=== PATIENT | female | born 1940 | race Caucasian/White ===

== ENCOUNTER 2016-05-10 08:57 | Emergency (ER) | payer MEDICARE, OTHER ==
[2015-12-31 12:29] VITALS: BMI 22.6
[~2016-05-10 08:57] MED LIST: ARICEPT23 MG PO; BENTYL10 MG PO; CALTRATE 600 M600 M1 PO; CARAFATE1 G/10 ML PO; CELEXA40 MG PO; CYCLOBENZAPRINE10 MG PO; DESERYL100 MG PO; DICLOFENAC SODI50 MG PO; FLAGYL500 MG PO; FLORINEF 0.1 M0.1 MG PO; IMITREX100 MG; KADIAN30 MG PO; KLOR-CON 1010 MEQ PO; LEVAQUIN750 MG PO; LINZESS145 MCG PO; MOBIC7.5 MG PO; MORPHINE IMMEDI15 MG PO; MORPHINE SULFAT30 M4 PO; MULTI-DAY VITAM1 TAB PO; NEURONTIN 300300 MG PO; NEXIUM40 MG PO; PRAVASTATIN SOD10 MG PO; TOPAMAX100 MG PO; VOLTAREN75 MG PO; ZANAFLEX4 MG PO
[2016-05-10 09:53] LABS: BASOPHILS 0.2 % (0.0-2.0); EOSINOPHILS 0.4 % (0-7); HEMATOCRIT 34.1 % (36.0-48.0); HEMOGLOBIN 10.2 g/dL (12-16); IMMATURE GRANULOCYTES 0.1 % (0-5); LYMPHOCYTES 8.8 % (15-50); MCH 27.4 pg (26.0-34.0); MCHC 29.9 g/dL (31.0-37.0); MCV 91.7 fL (80.0-100.0); MONOCYTES 9.5 % (2-11); RBC 3.72 10x6/uL (4.00-5.40); RDW 14.6 % (11.5-14.5); WBC 9.1 10x3/uL (4.8-10.8)
[2016-05-10 09:55] LABS: PLATELET COUNT 200 10x3/uL (130-400)
[2016-05-10 10:15] LABS: ALBUMIN 2.8 g/dL (3.4-5.0); ANION GAP 10.4 mmol/L (8-16); BILIRUBIN - TOTAL 0.28 mg/dL (0.2-1.3); CALCIUM 8.4 mg/dL (8.5-10.1); CARBON DIOXIDE 26.6 mmol/L (21.0-32.0); CREATININE - SERUM 0.9 mg/dL (0.6-1.3); PROTEIN - SERUM 5.6 g/dL (6.4-8.2)
[2016-05-10 10:34] LABS: APPEARANCE CLEAR (CLEAR); BILIRUBIN NEGATIVE (NEGATIVE); COLOR DK YELLOW (YELLOW); GLUCOSE NEGATIVE (NEGATIVE); KETONE NEGATIVE (NEGATIVE); LEUKOCYTE ESTERASE TRACE (NEGATIVE); NITRITE NEGATIVE (NEGATIVE); PROTEIN TRACE mg/dL (NEGATIVE); UROBILINOGEN NORMAL (NORMAL)
[2016-05-10 10:35] LABS: AMORPHOUS SEDIMENT <1+ /lpf (NONE SEEN); BACTERIA MODERATE /hpf (NONE SEEN); EPITHELIAL CELLS 0-5 /hpf (0-5); GRANULAR CAST OCC /lpf (NONE SEEN); RED CELLS - URINE 0-5 /hpf (0-5); WHITE CELLS - URINE 0-5 /hpf (0-5)
== END 2016-05-10 11:57 | disposition home or self-care (01) ==
LOC: D.ER 08:57
PROVIDERS: Emergency Medicine
DX: S50.811A Abrasion of right forearm, initial encounter (principal); S50.812A Abrasion of left forearm, initial encounter; W19.XXXA Unspecified fall, initial encounter; Y93.89 Activity, other specified; Y92.019 Unspecified place in single-family (private) house as the place of occurrence of the external cause; S00.83XA Contusion of other part of head, initial encounter; E86.0 Dehydration; D64.9 Anemia, unspecified; F03.90 Unspecified dementia, unspecified severity, without behavioral disturbance, psychotic disturbance, mood disturbance, and anxiety; F32.9 Major depressive disorder, single episode, unspecified; C34.90 Malignant neoplasm of unspecified part of unspecified bronchus or lung

== ENCOUNTER 2016-06-19 18:40 | Emergency (ER) | payer MEDICARE, OTHER ==
[2015-12-31 12:29] VITALS: BMI 22.6
[2016-06-19 19:37] LABS: BASOPHILS 0.1 % (0.0-2.0); EOSINOPHILS 0.1 % (0-7); HEMATOCRIT 36.1 % (36.0-48.0); HEMOGLOBIN 10.9 g/dL (12-16); IMMATURE GRANULOCYTES 0.1 % (0-5); LYMPHOCYTES 9.6 % (15-50); MCH 28.1 pg (26.0-34.0); MCHC 30.2 g/dL (31.0-37.0); MEAN PLATELET VOLUME 11.5 fL (7.4-10.4); MONOCYTES 5.6 % (2-11); NEUTROPHILS 84.5 % (40-80); PLATELET COUNT 203 10x3/uL (130-400); RBC 3.88 10x6/uL (4.00-5.40); RDW 14.4 % (11.5-14.5); WBC 7.1 10x3/uL (4.8-10.8)
[2016-06-19 20:02] LABS: ALBUMIN 3.8 g/dL (3.4-5.0); ANION GAP 13.8 mmol/L (8-16); BILIRUBIN - TOTAL 0.17 mg/dL (0.2-1.3); CALCIUM 9.1 mg/dL (8.5-10.1); CARBON DIOXIDE 24.7 mmol/L (21.0-32.0); POTASSIUM - SERUM 3.5 mmol/L (3.5-5.1); PROTEIN - SERUM 6.7 g/dL (6.4-8.2)
[2016-06-19 20:15] LABS: APPEARANCE CLEAR (CLEAR); BILIRUBIN NEGATIVE (NEGATIVE); COLOR YELLOW (YELLOW); GLUCOSE NEGATIVE (NEGATIVE); KETONE NEGATIVE (NEGATIVE); LEUKOCYTE ESTERASE 1+ (NEGATIVE); NITRITE NEGATIVE (NEGATIVE); PROTEIN NEGATIVE (NEGATIVE); SPECIFIC GRAVITY 1.015 (1.005-1.020); UROBILINOGEN NORMAL (NORMAL)
[2016-06-19 20:16] LABS: BACTERIA FEW /hpf (NONE SEEN); EPITHELIAL CELLS 0-5 /hpf (0-5); RED CELLS - URINE 0-5 /hpf (0-5); WHITE CELLS - URINE 0-5 /hpf (0-5)
== END 2016-06-20 01:40 | disposition home or self-care (01) ==
LOC: D.ER 18:40
PROVIDERS: Family Medicine
DX: K29.00 Acute gastritis without bleeding (principal); R11.10 Vomiting, unspecified; F03.90 Unspecified dementia, unspecified severity, without behavioral disturbance, psychotic disturbance, mood disturbance, and anxiety; F32.9 Major depressive disorder, single episode, unspecified

== ENCOUNTER → 2017-05-21 10:13 | Outpatient (CLI) | payer MEDICARE, OTHER ==
[2015-12-31 12:29] VITALS: BMI 22.6
[~2017-05-21 10:13] MED LIST changes: +CARAFATE1 G PO; +DEXILANT60 MG PO; +GABAPENTIN100 MG PO; +HYDROCODONE-APA1 TAB PO; +MS CONTIN30 MG PO; +ROCEPHIN 1 GM/D51 G1 IV
== END | disposition home or self-care (01) ==
LOC: D.RAD 08:30
DX: R10.13 Epigastric pain (principal); R13.10 Dysphagia, unspecified

== ENCOUNTER 2017-05-23 15:18 | Observation (INO) | payer MEDICARE, OTHER ==
[~2017-05-23 15:18] MED LIST changes: -CARAFATE1 G PO; -DEXILANT60 MG PO; -GABAPENTIN100 MG PO; -HYDROCODONE-APA1 TAB PO; -MS CONTIN30 MG PO; -ROCEPHIN 1 GM/D51 G1 IV
[2017-05-23 16:40] LABS: APPEARANCE CLEAR (CLEAR); BILIRUBIN NEGATIVE (NEGATIVE); COLOR YELLOW (YELLOW); GLUCOSE NEGATIVE (NEGATIVE); KETONE NEGATIVE (NEGATIVE); NITRITE NEGATIVE (NEGATIVE); PROTEIN NEGATIVE (NEGATIVE); SPECIFIC GRAVITY 1.015 (1.005-1.020); UROBILINOGEN NORMAL (NORMAL)
[2017-05-23 16:42] LABS: BACTERIA FEW /hpf (NONE SEEN); RED CELLS - URINE 0-5 /hpf (0-5)
[2017-05-23 17:22] LABS: BASOPHILS 0.6 % (0-2); EOSINOPHILS 4.7 % (0-7); HEMATOCRIT 33.8 % (36.0-48.0); HEMOGLOBIN 9.8 g/dL (12-16); LYMPHOCYTES 31.3 % (15-50); MCH 26.6 pg (26.0-34.0); MCV 91.6 fL (80.0-100.0); MEAN PLATELET VOLUME 11.4 fL (7.4-10.4); MONOCYTES 11.5 % (2-11); NEUTROPHILS 51.9 % (40-80); RBC 3.69 10x6/uL (4.00-5.40); RDW 15.1 % (11.5-14.5); WBC 4.7 10x3/uL (4.8-10.8)
[2017-05-23 17:34] LABS: PLATELET COUNT 157 10x3/uL (130-400)
[2017-05-23 17:39] LABS: ALBUMIN 3.4 g/dL (3.4-5.0); ALKALINE PHOSPHATASE 44 U/L (46-116); ALT (SGPT) 18 U/L (10-68); BILIRUBIN - TOTAL 0.16 mg/dL (0.2-1.3); CALC OSMOLALITY 289 mosm/kg (275-300); CARBON DIOXIDE 32.6 mmol/L (21.0-32.0); CHLORIDE - SERUM 104 mmol/L (98-107); CREATININE - SERUM 0.9 mg/dL (0.6-1.3); GLUCOSE 108 mg/dL (74-106); POTASSIUM - SERUM 4.1 mmol/L (3.5-5.1); PROTEIN - SERUM 6.2 g/dL (6.4-8.2); SODIUM 143 mmol/L (136-145); UREA NITROGEN 25 mg/dL (7-18); eGFR NON AFRICAN AMERICAN 64 mL/min (90-120)
[2017-05-23 17:50] LABS: TROPONIN-I < 0.017 ng/mL (0.000-0.060)
[2017-05-24 00:16] LABS: CKMB 2.1 U/L (0.0-3.6); CREATINE KINASE 84 UL (21-215); TROPONIN-I < 0.017 ng/mL (0.000-0.060)
[2017-05-24 02:36] LABS: CKMB 2.1 U/L (0.0-3.6); CREATINE KINASE 79 UL (21-215)
[2017-05-24 02:37] LABS: TROPONIN-I < 0.017 ng/mL (0.000-0.060)
[2017-05-24 04:14] LABS: BASOPHILS 0.6 % (0-2); EOSINOPHILS 4.7 % (0-7); HEMATOCRIT 35.4 % (36.0-48.0); HEMOGLOBIN 10.2 g/dL (12-16); LYMPHOCYTES 30.8 % (15-50); MCH 26.5 pg (26.0-34.0); MCHC 28.8 g/dL (31.0-37.0); MCV 91.9 fL (80.0-100.0); MONOCYTES 12.1 % (2-11); NEUTROPHILS 51.8 % (40-80); PLATELET COUNT 179 10x3/uL (130-400); RBC 3.85 10x6/uL (4.00-5.40); RDW 15.2 % (11.5-14.5); WBC 4.9 10x3/uL (4.8-10.8)
[2017-05-24 04:45] LABS: ALBUMIN 3.3 g/dL (3.4-5.0); ANION GAP 10.6 mmol/L (8-16); BILIRUBIN - TOTAL 0.14 mg/dL (0.2-1.3); CARBON DIOXIDE 32.9 mmol/L (21.0-32.0); CREATININE - SERUM 0.8 mg/dL (0.6-1.3); POTASSIUM - SERUM 4.5 mmol/L (3.5-5.1); PROTEIN - SERUM 5.9 g/dL (6.4-8.2)
[2017-05-24 04:51] LABS: CALCIUM 9.1 mg/dL (8.5-10.1)
[2017-05-24 09:07] LABS: CKMB 1.8 U/L (0.0-3.6); CREATINE KINASE 83 UL (21-215)
[2017-05-24 09:11] LABS: TROPONIN-I < 0.017 ng/mL (0.000-0.060)
[2017-05-24 09:32] VITALS: BMI 22.6
== END 2017-05-24 13:09 | disposition home or self-care (01) ==
LOC: D.ER 15:18 → D.EDHOLD 19:49 → OBSVTIME 19:49 → D.EDHOLD 05-24 13:09
PROVIDERS: Family Medicine; Physician Assistant
DX: I11.9 Hypertensive heart disease without heart failure (principal); F03.90 Unspecified dementia, unspecified severity, without behavioral disturbance, psychotic disturbance, mood disturbance, and anxiety; D64.9 Anemia, unspecified; R05 Cough; G89.29 Other chronic pain; M54.9 Dorsalgia, unspecified

== ENCOUNTER → 2017-06-02 13:34 | Outpatient (CLI) | payer MEDICARE, OTHER ==
[2017-05-24 09:32] VITALS: BMI 22.6
[~2017-06-02 13:34] MED LIST changes: +CARAFATE1 G PO; +DEXILANT60 MG PO; +GABAPENTIN100 MG PO; +HYDROCODONE-APA1 TAB PO; +MS CONTIN30 MG PO; +ROCEPHIN 1 GM/D51 G1 IV
[2017-06-02 14:05] LABS: BASOPHILS 0.5 % (0-2); HEMATOCRIT 38.6 % (36.0-48.0); HEMOGLOBIN 11.4 g/dL (12-16); IMMATURE GRANULOCYTES 0.2 % (0-5); LYMPHOCYTES 30.4 % (15-50); MCH 27.1 pg (26.0-34.0); MCHC 29.5 g/dL (31.0-37.0); MCV 91.7 fL (80.0-100.0); MEAN PLATELET VOLUME 11.4 fL (7.4-10.4); MONOCYTES 11.7 % (2-11); NEUTROPHILS 54.2 % (40-80); PLATELET COUNT 209 10x3/uL (130-400); RBC 4.21 10x6/uL (4.00-5.40); RDW 14.7 % (11.5-14.5); WBC 5.6 10x3/uL (4.8-10.8)
[2017-06-02 14:25] LABS: ANION GAP 11.3 mmol/L (8-16); BILIRUBIN - TOTAL 0.18 mg/dL (0.2-1.3); CALCIUM 9.1 mg/dL (8.5-10.1); CARBON DIOXIDE 33.4 mmol/L (21.0-32.0); POTASSIUM - SERUM 3.7 mmol/L (3.5-5.1)
== END | disposition home or self-care (01) ==
LOC: D.LAB 13:34
PROVIDERS: Internal Medicine Gastroenterology
DX: R13.10 Dysphagia, unspecified (principal); R11.0 Nausea

== ENCOUNTER → 2017-06-11 16:44 | Outpatient (CLI) | payer MEDICARE, OTHER ==
[2017-05-24 09:32] VITALS: BMI 22.6
== END | disposition home or self-care (01) ==
LOC: D.MAMMO 14:30
DX: Z12.31 Encounter for screening mammogram for malignant neoplasm of breast (principal)

== ENCOUNTER 2017-07-10 21:20 | Inpatient (IN) | payer MEDICARE, OTHER ==
[~2017-07-10] VITALS: Ht 167.6 cm; Wt 55.5 kg
--- NOTE | ~2017-07-10 | OP ---
PATIENT NAME: MARY EDWARDS MEDICAL RECORD: [id number] :41 LOCATION:D.MS Al2213 ADMISSION DATE:07/10/17 SURGEON: TOMY COLLINS MD DATE OF OPERATION: 07/11/2017 SURGEON: Tomy Collins MD ANESTHESIOLOGIST: Dr. Sherman ENVIRONMENTAL PROGRAM MANAGER: None. PREOPERATIVE DIAGNOSIS: Left displaced femoral neck fracture. POSTOPERATIVE DIAGNOSIS: Left displaced femoral neck fracture. PROCEDURE PERFORMED: Left hip hemiarthroplasty. ANTIBIOTICS: 1 gram Ancef. ESTIMATED BLOOD LOSS: 100 cc. FINDINGS: See body of report. COMPLICATIONS: None. PATHOLOGY: None. IMPLANTS: The Alvaardo Accolade II system was utilized. The Accolade II 130-degree neck angle hip system, size #5, neck length 35 mm, stem length 108 mm was used as well as a V40 [place] femoral head 26 mm with 0 offset and the bipolar component 45 mm and 26 mm and OD and ID respectively. COMPLICATIONS: None. TOURNIQUET: None. DISPOSITION: Postoperatively, stable to the recovery room. COUNTS: Needle, sponge, and instrument counts were correct. INDICATIONS: The patient is a 77-year-old female who presented to the Emergency Room last night after a fall sustaining a left displaced femoral neck fracture with shortening and external rotation of the left lower extremity and groin pain noted. She was unable to weightbear. The patient was indicated for left hip hemiarthroplasty after medical optimization and clearance was obtained today. The patient was also counseled as to the risks, benefits, alternatives, and complications of the procedure. Her questions were answered; as well as the questions of the family members present at the time. Informed consent was obtained. DESCRIPTION OF PROCEDURE: The patient was taken to the operating room and placed supine on the operative table; at which time, general endotracheal anesthesia and paralysis were provided by the anesthesia department. She was placed in the lateral position using a beanbag with the left hip exposed. A pillow was placed between the right and left legs, which were slightly bent with OPERATIVE REPORT [id number] MARY EDWARDS the hip slightly flexed. This was done in order to compare leg lengths during the procedure once the trials and final implants were in place. The left lower extremity was then elevated, prepped and draped in the usual sterile fashion. The bony landmarks were palpated and marked on the skin and a posterior approach to the left hip was then marked off using a marking pen. A timeout was performed and the left leg was then elevated, prepped and draped in the usual sterile fashion. An incision was then made through skin down into the subcutaneous tissue. Bleeders were cauterized using electrocautery. Once down to the gluteus fascia and the fascia conor a curvilinear incision was made through the fascia. The vastus lateralis, quadratus femoris and gluteus medius were identified. The gluteus muscle fibers were split proximally to increase the exposure. and the posterior aspect of the proximal femur was identified. Fracture hematoma was also visualized. The sciatic nerve was observed posteriorly and it did not pass between any of the short external rotators. It remained posterior to all of them. With care lap pads and the Charnley were applied to expose the surgical site but avoid injury to the sciatic nerve. At this time, the short external rotator tendons were taken down from the trochan. Tag sutures placed for future repair. An arthrotomy was then performed. The neck cut of the proximal femur was then made in order to further expose the femoral head fragment. This was removed using the usual technique and came out with no resistance as the ligamentum was no longer present. The head was measured to be a 45 mm head. The 45mm trial head was tiraled and found to be an excellent fit. Following this, the opening osteome was used to enter the proximal femur. The canal finder was then placed into the proximal femur and down the shaft. This was followed by serial broaching up to a size 5, which was an excellent fit. At this time, the size 5 femoral implant was placed followed by a trial of a planned 45-mm bipolar head component. The limb lengths were checked at the knee, cancaneus and the sole of the foot and were found to be in good alignment. Following this, the trial was removed. Irrigation was carried out followed by placement of the V40 femoral head and the UHR universal head bipolar component size 45. Reduction was performed. Limb lengths were checked again and deemed to be adequate, appropriate and symmetrical comparing the left knee to the right knee, and the left foot to the right foot. Copious irrigation was carried out. Two drill holes were placed into the proximal posterior aspect of the femur for repair of the capsule and the short external rotators which had tag sutures in them. The capsule was repaired firstend to end and then the tag sutures were placed through the drill holes. This was followed by placement of the short extremal rotator sutures through the holes. The leg was placed into external rotation and a good repair was obtained with the leg held in external rotation to protect the repair. Copious irrigation was carried out followed by closure of the fascia conor and gluteal fascia. Copious irrigation was carried out after that layer was closed. This was followed by closure of the subcutaneous fat layer. Copious irrigation was carried out again. The dermis was closed with interupted Vicryl sutures. Lastly yara were applied to the skin. The leg was cleansed. A sterile dressing was applied. The patient was placed in the supine position with an abduction pillow placed between the legs. She was awakened and extubated in stable condition and brought to the recovery room. OPERATIVE REPORT [id number] MARY EDWARDS TRANSINT:[id number] Voice Confirmation ID: [id number] DOCUMENT ID: [id number] TOMY COLLINS MD at 1707 CC: [id number] DICTATION DATE: 07/11/17 172 TALENT RECRUITER: 07/12/17 0433 ADM IN [facility] [address] [place] [address]
--- NOTE | ~2017-07-10 | CN ---
PATIENT NAME:MARY EDWARDS MEDICAL RECORD: [id number] : 41 LOCATION:D.[facility] Al2213 ADMIT DATE: 07/10/17 ACCOUNT: [id number] CONSULTING PHYSICIAN: LESLYE JARQUIN MD REFERRING PHYSICIAN: STEPHEN MAE MD DATE OF CONSULTATION: 07/12/2017 Cardiology Consultation HISTORY OF PRESENT ILLNESS: A 77-year-old female with history of longstanding chest pain with extensive workup including angiography with negative angiography. She has a history normal LV systolic function, recently been having intermittent hypertension, intolerant to multiple agents and continued chest pain as well. She has been having falls at home, fell and fractured left hip. We are asked to see her preoperatively. PAST MEDICAL HISTORY: Includes: 1. History of hypertension, intermittent. 2. Dementia. 3. Anxiety. 4. Chronic pain. 5. Gastroesophageal reflux disease. ALLERGIES: PROCAINE AND AMBIEN. MEDICATIONS: Include Carafate 1 gm a.c. and q.h.s., Dexilant 60 mg p.o. daily, trazodone 100 q.h.s., Mobic 7.5 b.i.d., morphine extended release 30 b.i.d., Neurontin 100 b.i.d., Celexa 40 every day, Aricept 20 every day. SOCIAL HISTORY: Nonsmoker, nondrinker. Has some difficulty with ADLs as per daughter's report secondary to dementia. Does try to stay active. REVIEW OF SYSTEMS: The patient reports easy bruising but reports no swollen glands. The patient reports no fever, no night sweats, no significant weight gain, no significant weight loss. No significant exercise tolerance. The patient reports no dry eyes, no irritation, no vision change. Patient reports no difficulty hearing and no ear pain. Patient reports no frequent nose bleeds or nose and sinus problems. Patient reports on arm pain on exertion. No shortness of breath while lying down. No history of heart murmur. Patient reports no cough, no wheezing or coughing up blood. Patient reports no abdominal pain, no vomiting. Normal appetite. No diarrhea and not vomiting blood. No nausea and no constipation. Patient reports no incontinence. No difficulty urinating. No hematuria. No increased frequency. Patient reports no muscle aches. No weakness, no arthralgias, no back pain. No swelling of the extremities. Patient reports no abnormal mole, no jaundice, no rashes. Reports no loss of consciousness. No weakness and no numbness. No seizures, dizziness, or headaches. The patient reports no depression, no sleep disturbance, feeling safe in a relationship and no alcohol abuse. Patient reports on fatigue. Reports no runny nose or sinus pressure. No itching, no hives, and no frequent sneezing. PHYSICAL EXAMINATION: GENERAL: Pleasant female in no acute distress. VITAL SIGNS: Blood pressure 130/66, pulse 97 and regular. HEENT: Normocephalic, atraumatic. CONSULT REPORT [id number] MARY EDWARDS NECK: No JVD or bruit. HEART: Regular. LUNGS: Soliz clear. ABDOMEN: Soft, nontender. EXTREMITIES: Pulses 2+. There is no edema. DIAGNOSTIC DATA: ECG without acute change. IMPRESSION: Given negative angiography, echocardiogram study actually done within the last week with normal LV function, no contraindication from surgery from cardiovascular standpoint. Given intolerant to multiple antihypertensive the past, we would consider letting blood pressure higher end of normal for treating at this point. TRANSINT:[id number] Voice Confirmation ID: [id number] DOCUMENT ID: [id number] LESLYE JARQUIN MD at 1132 CC: [id number] DICTATION DATE: 07/12/17927 REMOTE MORTGAGE UNDERWRITER: 07/12/17 1030 ADM IN [place] [id number] [place] [id number]
[~2017-07-10 21:20] MED LIST changes: -CARAFATE1 G PO; -DEXILANT60 MG PO; -GABAPENTIN100 MG PO; -HYDROCODONE-APA1 TAB PO; -MS CONTIN30 MG PO; -ROCEPHIN 1 GM/D51 G1 IV
[2017-07-10 22:15] LABS: BASOPHILS 0.3 % (0-2); EOSINOPHILS 0.8 % (0-7); HEMATOCRIT 29.1 % (36.0-48.0); HEMOGLOBIN 8.8 g/dL (12-16); IMMATURE GRANULOCYTES 0.1 % (0-5); LYMPHOCYTES 9.8 % (15-50); MCH 26.9 pg (26.0-34.0); MCHC 30.2 g/dL (31.0-37.0); MEAN PLATELET VOLUME 11.3 fL (7.4-10.4); MONOCYTES 11.5 % (2-11); NEUTROPHILS 77.5 % (40-80); PLATELET COUNT 193 10x3/uL (130-400); RBC 3.27 10x6/uL (4.00-5.40); RDW 14.6 % (11.5-14.5); WBC 7.1 10x3/uL (4.8-10.8)
[2017-07-10 22:25] LABS: INR 1.18 (0.85-1.17); PROTIME 14.6 SECONDS (11.6-15.0)
[2017-07-10 22:27] LABS: APTT 45.5 SECONDS (22.8-39.4)
[2017-07-10 22:29] LABS: APPEARANCE CLEAR (CLEAR); BILIRUBIN NEGATIVE (NEGATIVE); COLOR YELLOW (YELLOW); GLUCOSE NEGATIVE (NEGATIVE); KETONE NEGATIVE (NEGATIVE); NITRITE NEGATIVE (NEGATIVE); PROTEIN TRACE mg/dL (NEGATIVE); UROBILINOGEN NORMAL (NORMAL)
[2017-07-10 22:30] LABS: BACTERIA FEW /hpf (NONE SEEN); RED CELLS - URINE OCC /hpf (0-5); WHITE CELLS - URINE OCC /hpf (0-5)
[2017-07-10 22:31] LABS: ANION GAP 13.8 mmol/L (8-16); BILIRUBIN - TOTAL 0.2 mg/dL (0.2-1.3); CALCIUM 8.4 mg/dL (8.5-10.1); CARBON DIOXIDE 23.8 mmol/L (21.0-32.0); CREATININE - SERUM 3.1 mg/dL (0.6-1.3); POTASSIUM - SERUM 3.6 mmol/L (3.5-5.1); PROTEIN - SERUM 6.1 g/dL (6.4-8.2)
[2017-07-11] VITALS (7 sets, daily range): BP systolic 104–147; BP diastolic 38–74; Ht 167.6 cm; Wt 55.5 kg
[2017-07-11] MEDS ORDERED: DESERYL100 MG PO (01:46)
[2017-07-11] MEDS ORDERED: MOBIC7.5 MG PO (01:46)
[2017-07-11] MEDS ORDERED: GABAPENTIN100 MG PO (01:47)
[2017-07-11] MEDS ORDERED: DEXILANT60 MG PO (01:47)
[2017-07-11] MEDS ORDERED: CARAFATE1 G PO (01:48)
[2017-07-12] VITALS: BP 130/66
[2017-07-12 04:00] VITALS: BP 141/65
[2017-07-12 05:44] LABS: BASOPHILS 0.3 % (0-2); EOSINOPHILS 0.1 % (0-7); HEMATOCRIT 26.7 % (36.0-48.0); HEMOGLOBIN 8.3 g/dL (12-16); IMMATURE GRANULOCYTES 0.3 % (0-5); LYMPHOCYTES 6.7 % (15-50); MCH 26.9 pg (26.0-34.0); MCHC 31.1 g/dL (31.0-37.0); MEAN PLATELET VOLUME 11.3 fL (7.4-10.4); MONOCYTES 14.7 % (2-11); NEUTROPHILS 77.9 % (40-80); PLATELET COUNT 186 10x3/uL (130-400); RBC 3.09 10x6/uL (4.00-5.40); RDW 14.7 % (11.5-14.5); WBC 7.6 10x3/uL (4.8-10.8)
[2017-07-12 05:53] LABS: MCV 86.4 fL (80.0-100.0)
[2017-07-12 06:02] LABS: ALBUMIN 2.3 g/dL (3.4-5.0); ANION GAP 14.1 mmol/L (8-16); BILIRUBIN - TOTAL 0.32 mg/dL (0.2-1.3); CALCIUM 8.1 mg/dL (8.5-10.1); CARBON DIOXIDE 23.4 mmol/L (21.0-32.0); POTASSIUM - SERUM 3.5 mmol/L (3.5-5.1); PROTEIN - SERUM 5.5 g/dL (6.4-8.2)
[2017-07-12 06:05] LABS: CREATININE - SERUM 0.8 mg/dL (0.6-1.3)
[2017-07-12 09:07] VITALS: BP 163/57
[2017-07-12 13:26] VITALS: BP 153/54
[2017-07-12 20:54] VITALS: BP 155/62
[2017-07-13 00:26] VITALS: BP 172/70
[2017-07-13 06:03] VITALS: BP 160/69
[2017-07-13 06:04] LABS: BASOPHILS 0 % (0-2); EOSINOPHILS 0 % (0-7); HEMATOCRIT 27.8 % (36.0-48.0); HEMOGLOBIN 8.5 g/dL (12-16); IMMATURE GRANULOCYTES 0.2 % (0-5); LYMPHOCYTES 5.2 % (15-50); MCH 26.5 pg (26.0-34.0); MCHC 30.6 g/dL (31.0-37.0); MCV 86.6 fL (80.0-100.0); MEAN PLATELET VOLUME 11.8 fL (7.4-10.4); MONOCYTES 15.2 % (2-11); NEUTROPHILS 79.4 % (40-80); PLATELET COUNT 192 10x3/uL (130-400); RBC 3.21 10x6/uL (4.00-5.40); RDW 14.7 % (11.5-14.5); WBC 9.2 10x3/uL (4.8-10.8)
[2017-07-13 06:47] LABS: ALKALINE PHOSPHATASE 53 U/L (46-116); BILIRUBIN - TOTAL 0.36 mg/dL (0.2-1.3); CALCIUM 7.8 mg/dL (8.5-10.1); CARBON DIOXIDE 22.2 mmol/L (21.0-32.0); CHLORIDE - SERUM 106 mmol/L (98-107); GLUCOSE 133 mg/dL (74-106); POTASSIUM - SERUM 3.3 mmol/L (3.5-5.1); SODIUM 140 mmol/L (136-145)
[2017-07-13 06:48] LABS: ALT (SGPT) 41 U/L (10-68); CALC OSMOLALITY 281 mosm/kg (275-300); CREATININE - SERUM 0.5 mg/dL (0.6-1.3); UREA NITROGEN 14 mg/dL (7-18); eGFR NON AFRICAN AMERICAN > 90 mL/min (90-120)
[2017-07-13 08:21] VITALS: BP 155/71
[2017-07-13 12:09] VITALS: BP 153/61
[2017-07-13 19:52] VITALS: BP 172/71
[2017-07-14 00:01] VITALS: BP 193/74
[2017-07-14 00:42] VITALS: BP 180/79
[2017-07-14 04:17] VITALS: BP 154/62
[2017-07-14 07:12] LABS: BASOPHILS 0.3 % (0-2); EOSINOPHILS 0.9 % (0-7); HEMATOCRIT 29.7 % (36.0-48.0); IMMATURE GRANULOCYTES 0.3 % (0-5); MCH 26.1 pg (26.0-34.0); MCHC 30.3 g/dL (31.0-37.0); MCV 86.1 fL (80.0-100.0); MEAN PLATELET VOLUME 11.1 fL (7.4-10.4); MONOCYTES 13.1 % (2-11); NEUTROPHILS 73.4 % (40-80); PLATELET COUNT 185 10x3/uL (130-400); RBC 3.45 10x6/uL (4.00-5.40); RDW 14.5 % (11.5-14.5)
[2017-07-14 07:48] LABS: ALBUMIN 2.1 g/dL (3.4-5.0); ALKALINE PHOSPHATASE 55 U/L (46-116); ALT (SGPT) 35 U/L (10-68); BILIRUBIN - TOTAL 0.29 mg/dL (0.2-1.3); CALC OSMOLALITY 284 mosm/kg (275-300); CALCIUM 7.9 mg/dL (8.5-10.1); CARBON DIOXIDE 26.4 mmol/L (21.0-32.0); CHLORIDE - SERUM 106 mmol/L (98-107); CREATININE - SERUM 0.5 mg/dL (0.6-1.3); GLUCOSE 103 mg/dL (74-106); PROTEIN - SERUM 5.1 g/dL (6.4-8.2); SODIUM 144 mmol/L (136-145); UREA NITROGEN 6 mg/dL (7-18); eGFR NON AFRICAN AMERICAN > 90 mL/min (90-120)
[2017-07-14 10:38] VITALS: BP 139/59
[2017-07-14] MEDS ORDERED: ROCEPHIN 1 GM/D51 G1 IV (15:01)
[2017-07-14 15:04] VITALS: BP 136/61
== END 2017-07-14 16:37 | DRG 470 ==
LOC: D.ER 21:20 → D.MS 23:52
PROVIDERS: Family Medicine; Orthopaedic Surgery Foot and Ankle Surgery
PROC: 0SRS0JZ Replacement of Left Hip Joint, Femoral Surface with Synthetic Substitute, Open Approach (ICD-10-PCS; principal; 2017-07-11 14:30)
DX: S72.002A Fracture of unspecified part of neck of left femur, initial encounter for closed fracture (principal); D62 Acute posthemorrhagic anemia; N39.0 Urinary tract infection, site not specified; N17.9 Acute kidney failure, unspecified; W19.XXXA Unspecified fall, initial encounter; I95.9 Hypotension, unspecified; I11.9 Hypertensive heart disease without heart failure; F03.90 Unspecified dementia, unspecified severity, without behavioral disturbance, psychotic disturbance, mood disturbance, and anxiety; G43.909 Migraine, unspecified, not intractable, without status migrainosus; F32.9 Major depressive disorder, single episode, unspecified

== ENCOUNTER 2017-07-14 16:25 | Inpatient (IN) | payer MEDICARE, OTHER ==
[~2017-07-14] VITALS: Ht 167.6 cm; Wt 52.2 kg
--- NOTE | ~2017-07-14 | RHP ---
PATIENT: MARY EDWARDS MEDICAL RECORD: [id number] ACCOUNT: [id number] LOCATION:[id number] : 41 ADMISSION DATE: 07/14/17 REHABILITATION HISTORY AND PHYSICAL EXAMINATION POST ADMISSION PHYSICIAN EXAMINATION DATE OF ADMISSION: 07/14/2017 ADMITTING DIAGNOSES: Left femoral fracture, status post hemiarthroscopy. HISTORY OF PRESENT ILLNESS: The patient is admitted to inpatient rehab with working diagnosis of status post fracture with hemiarthroscopy. The patient is 77 years of age. She presented to the acute hospital after several falls at home and complaints of hip pain. She reported that she had recently been placed on a new blood pressure medicine the week prior to the acute admit. On 07/10, her blood pressure bottomed out and made her swell and the medication was discontinued. She has now been changed to lisinopril. She reports she has had 5 falls in the last week due to hypotension. She was recently treated for UTI. She had a UA done on admit and now with positive urine culture. She was found upon x-ray to have acute subcapital left femoral neck fracture and underwent a hemiarthroscopy on 07/11. She has also had some postop complications including blood loss anemia, acute kidney insufficiency, increased pain, and immobility. She got a history of chronic neck pain with migraines, hypertension, syncope, shortness of breath, depression, anxiety, dementia. She lives at [facility] alone, was independent with her mobility and was moderately independent outside her apartment with use of rolling walker. She is moderately independent to independent with ADLs, with use of a shower bench for bathing. She is currently moderate assist to total assist for mobility, max assist for ADLs. She and her daughter plan to discharge to her apartment and get back to her prior level of functioning or as close as possible. COMORBIDITIES: Include hypertensive heart disease, acute blood loss anemia, COPD, altered mental status, dementia, acute anemia, acute fall with fracture of femoral neck, history of migraines, history of anxiety, acute kidney injury, recent hypotension, and multiple falls. PAST MEDICAL HISTORY: Significant for migraines, cataracts, hypertension, dementia, chronic pain, gastroesophageal reflux disease, syncope, hypotension, shortness of breath on exertion, depression, and anxiety. PAST SURGICAL HISTORY: Includes gallbladder surgery, hysterectomy, left thumb arthroplasty, right thumb arthroplasty, and breast biopsy. ALLERGIES: NOVOCAIN AND AMBIEN. CURRENT MEDICATIONS: Include Rocephin a gram q. 24 hours, meloxicam 7.5 mg daily, Protonix 40 mg daily, citalopram 40 mg daily, [place]thing[place] one tab q. 4 hours of 10/325, Desyrel 100 mg at bedtime, Carafate 1 gram q.a.c. and at bedtime, MS Contin 30 mg b.i.d., Neurontin 100 mg b.i.d., Aricept 10 mg at bedtime, and MiraLAX 17 grams in 8 ounces of water daily. HABITS: No current alcohol or tobacco use. FAMILY HISTORY: Noncontributory. HISTORY AND PHYSICAL [id number] GRACEJOSE SOCIAL HISTORY: The patient hopes to return back home and get back to her prior level of functioning. REVIEW OF SYSTEMS: GENERAL: She does complain of weakness and fatigue. HEENT: Denies cold, cough, or congestion. CARDIOVASCULAR: Denies chest pain. PHYSICAL EXAMINATION: VITAL SIGNS: Stable. Afebrile. GENERAL: An elderly female, in no acute distress, alert upon exam. HEENT: Normocephalic and atraumatic. Mucosa moist. NECK: Supple. No lymphadenopathy. LUNGS: Clear at this time. HEART: Regular rate and rhythm. ABDOMEN: Benign. EXTREMITIES: She does have noted postop swelling, but this appears within normal limits at this time. NEUROLOGIC: She is slow to mentate, consistent with dementia. LABORATORY DATA: White count 6.1, H&H 8.1 and 26.7, and platelet count is noted to be 217. Her sodium is 146, potassium 3.0, BUN and creatinine of 8 and 0.6, and blood sugar is noted to be 99. ASSESSMENT: This is a 77-year-old female patient admitted to rehab with working diagnosis of status post hemiarthroscopy secondary to fracture. The patient has potential to make improvement. We will institute the following multidisciplinary therapies including, but not limited to physical, occupational, respiratory, speech, nutritional services, prosthetics, and orthotics. Given her complex condition and risk for more complications, rehabilitation services cannot be provided at a lower level of care such as long-term facility. PLAN: 1. Admit to [facility] for intensive inpatient therapy to include the following disciplines: A. Physical therapy to improve gait, all transfer skills, and bed mobility to modified independent level. B. Occupational therapy to improve activities of daily living to a modified independent level. C. Case management to assist with discharge planning and placement options. D. Nutrition to assist with nutritional needs. E. Rehabilitation nursing to assist in monitoring the patient's underlying medical conditions and to assist with any type of bowel or bladder management. 2. The patient's current medications will be continued. 3. The patient will be placed on standard fall precautions. 4. The patient's estimated length of stay is approximately 7-10 days. 5. I am going to replace her potassium. 6. We will watch her H&H closely and transfuse as necessary. 7. We will discuss this patient during care team staff meeting this week. TRANSINT:[id number] Voice Confirmation ID: [id number] DOCUMENT ID: [id number] SUE notes whether there has been none or any medical/functional HISTORY AND PHYSICAL [id number] MARY EDWARDS change since admission: - No change since preadmission screen. SUE attests patient continues to be appropriate for IRF: - Continues to be appropriate. TANYA MACIEL MD at 1411 CC: [id number] DICTATION DATE: 07/15/17 0817 ORDER FULFILLMENT SPECIALIST: 07/15/17 1221 ADM IN [place] [id number] [place] [id number]
[~2017-07-14 16:25] MED LIST changes: +CARAFATE1 G PO; +DEXILANT60 MG PO; +GABAPENTIN100 MG PO; +ROCEPHIN 1 GM/D51 G1 IV
[2017-07-14 19:11] VITALS: BP 131/53; BMI 18.6
[2017-07-14 19:48] VITALS: BP 131/53
[2017-07-15 06:45] LABS: BASOPHILS 0.3 % (0-2); EOSINOPHILS 2.5 % (0-7); HEMATOCRIT 26.7 % (36.0-48.0); HEMOGLOBIN 8.1 g/dL (12-16); IMMATURE GRANULOCYTES 0.3 % (0-5); LYMPHOCYTES 15.9 % (15-50); MCH 26.1 pg (26.0-34.0); MCHC 30.3 g/dL (31.0-37.0); MCV 86.1 fL (80.0-100.0); MEAN PLATELET VOLUME 10.5 fL (7.4-10.4); MONOCYTES 12.8 % (2-11); NEUTROPHILS 68.2 % (40-80); PLATELET COUNT 217 10x3/uL (130-400); RDW 14.5 % (11.5-14.5); WBC 6.1 10x3/uL (4.8-10.8)
[2017-07-15 07:39] LABS: CALC OSMOLALITY 288 mosm/kg (275-300); CALCIUM 7.9 mg/dL (8.5-10.1); CARBON DIOXIDE 29.6 mmol/L (21.0-32.0); CHLORIDE - SERUM 107 mmol/L (98-107); CREATININE - SERUM 0.6 mg/dL (0.6-1.3); GLUCOSE 99 mg/dL (74-106); SODIUM 146 mmol/L (136-145); eGFR NON AFRICAN AMERICAN > 90 mL/min (90-120)
[2017-07-15 07:40] LABS: UREA NITROGEN 8 mg/dL (7-18)
[2017-07-15 08:00] VITALS: BP 111/60
[2017-07-15 10:43] VITALS: Ht 167.6 cm; Wt 52.2 kg
[2017-07-15 20:06] VITALS: BP 148/64
[2017-07-16 08:00] VITALS: BP 119/44
[2017-07-16 20:05] VITALS: BP 130/75
[2017-07-17 06:37] LABS: BASOPHILS 0.3 % (0-2); EOSINOPHILS 4.5 % (0-7); HEMATOCRIT 27.1 % (36.0-48.0); IMMATURE GRANULOCYTES 1.2 % (0-5); LYMPHOCYTES 15.1 % (15-50); MCH 25.9 pg (26.0-34.0); MCHC 29.5 g/dL (31.0-37.0); MCV 87.7 fL (80.0-100.0); MEAN PLATELET VOLUME 10.2 fL (7.4-10.4); MONOCYTES 8.6 % (2-11); NEUTROPHILS 70.3 % (40-80); RBC 3.09 10x6/uL (4.00-5.40)
[2017-07-17 06:39] LABS: PLATELET COUNT 279 10x3/uL (130-400)
[2017-07-17 07:04] LABS: CALC OSMOLALITY 285 mosm/kg (275-300); CALCIUM 8.2 mg/dL (8.5-10.1); CARBON DIOXIDE 29.3 mmol/L (21.0-32.0); CHLORIDE - SERUM 106 mmol/L (98-107); CREATININE - SERUM 0.6 mg/dL (0.6-1.3); GLUCOSE 92 mg/dL (74-106); POTASSIUM - SERUM 4.8 mmol/L (3.5-5.1); SODIUM 142 mmol/L (136-145); UREA NITROGEN 20 mg/dL (7-18); eGFR NON AFRICAN AMERICAN > 90 mL/min (90-120)
[2017-07-17 08:00] VITALS: BP 135/60
[2017-07-17 19:00] VITALS: BP 115/43
[2017-07-18 09:27] VITALS: BP 128/59
[2017-07-18 20:24] VITALS: BP 113/52
[2017-07-19 08:56] VITALS: BP 131/52
[2017-07-19 19:43] VITALS: BP 112/37
[2017-07-20 05:57] LABS: BASOPHILS 0.3 % (0-2); EOSINOPHILS 4.3 % (0-7); HEMATOCRIT 26.8 % (36.0-48.0); HEMOGLOBIN 7.9 g/dL (12-16); IMMATURE GRANULOCYTES 3.8 % (0-5); LYMPHOCYTES 16.2 % (15-50); MCH 26.4 pg (26.0-34.0); MCHC 29.5 g/dL (31.0-37.0); MCV 89.6 fL (80.0-100.0); MEAN PLATELET VOLUME 10.1 fL (7.4-10.4); MONOCYTES 10.6 % (2-11); NEUTROPHILS 64.8 % (40-80); RBC 2.99 10x6/uL (4.00-5.40); RDW 15.5 % (11.5-14.5); WBC 8.7 10x3/uL (4.8-10.8)
[2017-07-20 06:01] LABS: PLATELET COUNT 353 10x3/uL (130-400)
[2017-07-20 06:06] LABS: CALC OSMOLALITY 288 mosm/kg (275-300); CALCIUM 8.6 mg/dL (8.5-10.1); CARBON DIOXIDE 30.9 mmol/L (21.0-32.0); CHLORIDE - SERUM 106 mmol/L (98-107); CREATININE - SERUM 0.7 mg/dL (0.6-1.3); GLUCOSE 100 mg/dL (74-106); POTASSIUM - SERUM 4.9 mmol/L (3.5-5.1); SODIUM 142 mmol/L (136-145); UREA NITROGEN 28 mg/dL (7-18); eGFR NON AFRICAN AMERICAN 86 mL/min (90-120)
[2017-07-20 08:00] VITALS: BP 133/50
[2017-07-20 20:51] VITALS: BP 120/50
[2017-07-21 07:59] VITALS: BP 136/59
[2017-07-21 19:23] VITALS: BP 113/56
[2017-07-22 07:58] LABS: BASOPHILS 0.6 % (0-2); EOSINOPHILS 2.8 % (0-7); HEMATOCRIT 31.8 % (36.0-48.0); HEMOGLOBIN 9.3 g/dL (12-16); IMMATURE GRANULOCYTES 2.2 % (0-5); LYMPHOCYTES 12.2 % (15-50); MCH 26.6 pg (26.0-34.0); MCHC 29.2 g/dL (31.0-37.0); MCV 90.9 fL (80.0-100.0); MEAN PLATELET VOLUME 11.6 fL (7.4-10.4); MONOCYTES 10.4 % (2-11); NEUTROPHILS 71.8 % (40-80); PLATELET COUNT 294 10x3/uL (130-400); WBC 8.2 10x3/uL (4.8-10.8)
[2017-07-22 08:12] LABS: CALC OSMOLALITY 285 mosm/kg (275-300); CALCIUM 9.2 mg/dL (8.5-10.1); CARBON DIOXIDE 29.1 mmol/L (21.0-32.0); CHLORIDE - SERUM 104 mmol/L (98-107); CREATININE - SERUM 0.6 mg/dL (0.6-1.3); GLUCOSE 111 mg/dL (74-106); POTASSIUM - SERUM 4.6 mmol/L (3.5-5.1); SODIUM 141 mmol/L (136-145); UREA NITROGEN 24 mg/dL (7-18); eGFR NON AFRICAN AMERICAN > 90 mL/min (90-120)
[2017-07-22 08:28] VITALS: BP 131/49
[2017-07-22 20:05] VITALS: BP 120/65
[2017-07-23 08:00] VITALS: BP 148/57
[2017-07-23 20:00] VITALS: BP 112/44
[2017-07-24] MEDS ORDERED: MS CONTIN30 MG PO (08:14)
[2017-07-24] MEDS ORDERED: HYDROCODONE-APA1 TAB PO (08:14)
[2017-07-24 08:22] VITALS: BP 140/65
[2017-07-24 20:49] VITALS: BP 104/43
[2017-07-25 08:00] VITALS: BP 117/43
== END 2017-07-25 15:04 | disposition home health service (06) | DRG 560 ==
LOC: D.REHAB 16:25
PROVIDERS: Emergency Medicine
DX: S72.012D Unspecified intracapsular fracture of left femur, subsequent encounter for closed fracture with routine healing (principal); D62 Acute posthemorrhagic anemia; N17.9 Acute kidney failure, unspecified; I11.9 Hypertensive heart disease without heart failure; J44.9 Chronic obstructive pulmonary disease, unspecified; F03.90 Unspecified dementia, unspecified severity, without behavioral disturbance, psychotic disturbance, mood disturbance, and anxiety; W19.XXXD Unspecified fall, subsequent encounter; I50.9 Heart failure, unspecified

== ENCOUNTER → 2017-09-21 08:54 | Outpatient (CLI) | payer MEDICARE, OTHER ==
[2017-07-15 10:43] VITALS: BMI 18.5
[~2017-09-21 08:54] MED LIST changes: +HYDROCODONE-APA1 TAB PO; +IMITREX50 MG PO; +MS CONTIN30 MG PO
== END | disposition home or self-care (01) ==
LOC: D.US 08:54
DX: M79.605 Pain in left leg (principal); M79.604 Pain in right leg; R22.43 Localized swelling, mass and lump, lower limb, bilateral

== ENCOUNTER 2017-12-06 09:34 | Emergency (ER) | payer MEDICARE, OTHER ==
[~2017-12-06] VITALS: Ht 167.6 cm; Wt 54.1 kg
[~2017-12-06 09:34] MED LIST changes: -IMITREX50 MG PO
[2017-12-06 09:36] VITALS: Ht 167.6 cm; Wt 54.1 kg
[2017-12-06 10:05] LABS: BASOPHILS 0.8 % (0-2); EOSINOPHILS 1.3 % (0-7); HEMATOCRIT 37.7 % (36.0-48.0); HEMOGLOBIN 11.7 g/dL (12-16); IMMATURE GRANULOCYTES 0.3 % (0-5); LYMPHOCYTES 21.8 % (15-50); MCH 27.7 pg (26.0-34.0); MCV 89.1 fL (80.0-100.0); MEAN PLATELET VOLUME 10.7 fL (7.4-10.4); MONOCYTES 9.1 % (2-11); NEUTROPHILS 66.7 % (40-80); RBC 4.23 10x6/uL (4.00-5.40); RDW 15.7 % (11.5-14.5); WBC 3.9 10x3/uL (4.8-10.8)
[2017-12-06 10:07] LABS: PLATELET COUNT 153 10x3/uL (130-400)
[2017-12-06 10:11] LABS: APPEARANCE CLEAR (CLEAR); BILIRUBIN NEGATIVE (NEGATIVE); COLOR YELLOW (YELLOW); GLUCOSE NEGATIVE (NEGATIVE); KETONE NEGATIVE (NEGATIVE); NITRITE NEGATIVE (NEGATIVE); PROTEIN NEGATIVE (NEGATIVE); SPECIFIC GRAVITY 1.005 (1.005-1.020); UROBILINOGEN NORMAL (NORMAL)
[2017-12-06 10:28] LABS: ALBUMIN 3.5 g/dL (3.4-5.0); ALKALINE PHOSPHATASE 61 U/L (46-116); ALT (SGPT) 26 U/L (10-68); BILIRUBIN - TOTAL 0.16 mg/dL (0.2-1.3); CALC OSMOLALITY 285 mosm/kg (275-300); CALCIUM 8.2 mg/dL (8.5-10.1); CARBON DIOXIDE 25.5 mmol/L (21.0-32.0); CHLORIDE - SERUM 106 mmol/L (98-107); CREATININE - SERUM 0.8 mg/dL (0.6-1.3); GLUCOSE 105 mg/dL (74-106); POTASSIUM - SERUM 3.9 mmol/L (3.5-5.1); PROTEIN - SERUM 6.4 g/dL (6.4-8.2); SODIUM 142 mmol/L (136-145); UREA NITROGEN 21 mg/dL (7-18); eGFR NON AFRICAN AMERICAN 74 mL/min (90-120)
[2017-12-06 10:36] LABS: CKMB 5.2 U/L (0.0-3.6); CREATINE KINASE 218 UL (21-215); PRO BNP 650 pg/mL (0-450); TROPONIN-I < 0.017 ng/mL (0.000-0.060)
[2017-12-06 14:13] VITALS: BP 157/66
== END 2017-12-06 14:16 | disposition home or self-care (01) ==
LOC: D.ER 09:34
PROVIDERS: Family Medicine
DX: R06.02 Shortness of breath (principal); I10 Essential (primary) hypertension; R00.1 Bradycardia, unspecified

== ENCOUNTER 2017-12-15 15:18 | Emergency (ER) | payer MEDICARE, OTHER ==
[~2017-12-15] VITALS: Ht 167.6 cm; Wt 52.3 kg
[2017-12-15 15:42] VITALS: Ht 167.6 cm; Wt 52.3 kg
[2017-12-15] MEDS ORDERED: IMITREX50 MG PO (16:32)
[2017-12-15 17:17] VITALS: BP 157/66
== END 2017-12-15 17:17 | disposition home or self-care (01) ==
LOC: D.ER 15:18
DX: G43.909 Migraine, unspecified, not intractable, without status migrainosus (principal); I10 Essential (primary) hypertension

== ENCOUNTER → 2017-12-25 13:03 | Outpatient (CLI) | payer MEDICARE, OTHER ==
[2017-12-15 15:42] VITALS: BMI 18.6
[~2017-12-25 13:03] MED LIST changes: +ASPIRIN81 MG PO; +BYSTOLIC10 MG PO; +CELEBREX200 MG PO; +COZAAR100 MG PO; +GEODON20 MG PO; +HYTRIN5 MG PO; +IMITREX50 MG PO; +K-TAB10 MEQ PO; +KLONOPIN0.5 MG PO; +SURFAK240 MG PO; +TOPAMAX50 MG PO; +VITAMIN D3400 UNI1 PO; +ZOFRAN4 MG PO; +ZOLOFT100 MG PO
== END | disposition home or self-care (01) ==
LOC: D.CT 12-24 10:30
DX: R51 Headache (principal)

== ENCOUNTER 2018-01-19 16:38 | Emergency (ER) | payer MEDICARE, OTHER ==
[~2018-01-19] VITALS: Ht 167.6 cm; Wt 54.5 kg
[~2018-01-19 16:38] MED LIST changes: -ASPIRIN81 MG PO; -BYSTOLIC10 MG PO; -CELEBREX200 MG PO; -COZAAR100 MG PO; -GEODON20 MG PO; -HYTRIN5 MG PO; -K-TAB10 MEQ PO; -KLONOPIN0.5 MG PO; -SURFAK240 MG PO; -TOPAMAX50 MG PO; -VITAMIN D3400 UNI1 PO; -ZOFRAN4 MG PO; -ZOLOFT100 MG PO
[2018-01-19 16:54] VITALS: Ht 167.6 cm; Wt 54.5 kg
[2018-01-19 17:33] LABS: APPEARANCE CLEAR (CLEAR); BILIRUBIN NEGATIVE (NEGATIVE); COLOR YELLOW (YELLOW); GLUCOSE NEGATIVE (NEGATIVE); KETONE NEGATIVE (NEGATIVE); NITRITE NEGATIVE (NEGATIVE); PROTEIN NEGATIVE (NEGATIVE); UROBILINOGEN NORMAL (NORMAL)
[2018-01-19 18:02] LABS: BASOPHILS 0.5 % (0-2); EOSINOPHILS 4.2 % (0-7); HEMATOCRIT 37.4 % (36.0-48.0); HEMOGLOBIN 11.5 g/dL (12-16); IMMATURE GRANULOCYTES 0.2 % (0-5); LYMPHOCYTES 25.6 % (15-50); MCH 28.9 pg (26.0-34.0); MCHC 30.7 g/dL (31.0-37.0); MEAN PLATELET VOLUME 10.7 fL (7.4-10.4); MONOCYTES 13.4 % (2-11); NEUTROPHILS 56.1 % (40-80); RBC 3.98 10x6/uL (4.00-5.40); RDW 14.3 % (11.5-14.5); WBC 5.9 10x3/uL (4.8-10.8)
[2018-01-19 18:03] LABS: PLATELET COUNT 185 10x3/uL (130-400)
[2018-01-19] MEDS ORDERED: KADIAN30 MG PO (18:08)
[2018-01-19] MEDS ORDERED: TOPAMAX50 MG PO (18:08)
[2018-01-19] MEDS ORDERED: ARICEPT23 MG PO (18:09)
[2018-01-19] MEDS ORDERED: K-TAB10 MEQ PO (18:09)
[2018-01-19 18:11] LABS: APTT 34.3 SECONDS (22.8-39.4); INR 1.05 (0.85-1.17); PROTIME 13.3 SECONDS (11.6-15.0)
[2018-01-19 18:12] LABS: D-DIMER-QUANTITATIVE 0.39 ug/mLFEU (0.20-0.54)
[2018-01-19] MEDS ORDERED: ASPIRIN81 MG PO (18:14)
[2018-01-19] MEDS ORDERED: CELEBREX200 MG PO (18:15)
[2018-01-19] MEDS ORDERED: VITAMIN D3400 UNI1 PO (18:15)
[2018-01-19] MEDS ORDERED: KLONOPIN0.5 MG PO (18:16)
[2018-01-19] MEDS ORDERED: GEODON20 MG PO (18:16)
[2018-01-19] MEDS ORDERED: ZOLOFT100 MG PO (18:17)
[2018-01-19] MEDS ORDERED: COZAAR100 MG PO (18:17)
[2018-01-19] MEDS ORDERED: BYSTOLIC10 MG PO (18:17)
[2018-01-19 18:18] LABS: ALBUMIN 3.6 g/dL (3.4-5.0); ALKALINE PHOSPHATASE 61 U/L (46-116); ALT (SGPT) 33 U/L (10-68); CALC OSMOLALITY 286 mosm/kg (275-300); CALCIUM 8.8 mg/dL (8.5-10.1); CARBON DIOXIDE 28.4 mmol/L (21.0-32.0); CHLORIDE - SERUM 105 mmol/L (98-107); CREATININE - SERUM 0.9 mg/dL (0.6-1.3); GLUCOSE 102 mg/dL (74-106); POTASSIUM - SERUM 3.6 mmol/L (3.5-5.1); PROTEIN - SERUM 6.3 g/dL (6.4-8.2); SODIUM 143 mmol/L (136-145); UREA NITROGEN 17 mg/dL (7-18); eGFR NON AFRICAN AMERICAN 64 mL/min (90-120)
[2018-01-19] MEDS ORDERED: HYTRIN5 MG PO (18:18)
[2018-01-19] MEDS ORDERED: ZOFRAN4 MG PO (18:18)
[2018-01-19] MEDS ORDERED: SURFAK240 MG PO (18:18)
[2018-01-19 18:28] LABS: CREATINE KINASE 369 UL (21-215)
[2018-01-19 18:29] LABS: TROPONIN-I < 0.017 ng/mL (0.000-0.060)
[2018-01-19 22:36] VITALS: BP 129/47
== END 2018-01-19 22:36 ==
LOC: D.ER 16:38
PROVIDERS: Family Medicine
DX: G91.2 (Idiopathic) normal pressure hydrocephalus (principal); I10 Essential (primary) hypertension

== ENCOUNTER 2018-12-14 15:30 | Outpatient (CLI) | payer MEDICARE, OTHER ==
[2018-01-19 16:54] VITALS: BMI 19.4
[~2018-12-14 15:30] MED LIST changes: +ASPIRIN81 MG PO; +BYSTOLIC10 MG PO; +CELEBREX200 MG PO; +COZAAR100 MG PO; +GEODON20 MG PO; +HYTRIN5 MG PO; +K-TAB10 MEQ PO; +KLONOPIN0.5 MG PO; +SURFAK240 MG PO; +TOPAMAX50 MG PO; +VITAMIN D3400 UNI1 PO; +ZOFRAN4 MG PO; +ZOLOFT100 MG PO
== END 2018-12-14 16:00 | disposition home or self-care (01) ==
LOC: D.MAMMO 15:30
PROVIDERS: ATTEND Family Medicine
DX: Z12.31 Encounter for screening mammogram for malignant neoplasm of breast (principal)

== ENCOUNTER 2019-01-26 08:00 | Outpatient (CLI) | payer MEDICARE, OTHER ==
[2018-01-19 16:54] VITALS: BMI 19.4
== END 2019-01-26 23:59 | disposition home or self-care (01) ==
LOC: D.MAMMO 08:00
PROVIDERS: ATTEND Family Medicine
DX: R92.8 Other abnormal and inconclusive findings on diagnostic imaging of breast (principal)